=== PATIENT | male | born 1960 | race Caucasian/White ===

== ENCOUNTER 2018-01-31 14:40 | Emergency (ER) | payer SELFPAY ==
[~2018-01-31 14:40] MED LIST: CEPH500C3 PO; TYLE3 PO; Z.0.NO CURRENT MEDS
[2018-01-31] MEDS ORDERED: IOHEXOL 350 MG/ML 10 ML VIAL (for RAD DIAG) IVCONTRAST ONE (14:41)
[2018-01-31 15:16] VITALS: BP 150/73; PULSE 71; RESP 26; TEMP 97.7; O2SAT 97
--- NOTE | 2018-01-31 16:53 | RADRPT ---
EXAM DATE/TIME: 01/31/2018 15:31 [facility] COMPARISON: No previous studies available for comparison. INDICATIONS : Pain from trauma to right side. MEDICAL HISTORY : None. SURGICAL HISTORY : None. ENCOUNTER: Initial ACUITY: 4 - 6 days PAIN SCORE: 6/10 LOCATION: Right lower chest FINDINGS: The heart size is normal. There are small calcified granulomas are seen in the right upper lung. The lungs are otherwise clear. Minimal spurs are seen in the thoracic spine. No effusion is seen. CONCLUSION: No acute disease. Ger Ocampo MD on January 31, 2018 at 16:49 Board Certified Radiologist. This report was verified electronically.
[2018-01-31 17:24] VITALS: BP 165/85; PULSE 85; RESP 18; TEMP 98.2; O2SAT 98
--- NOTE | 2018-01-31 17:34 | PD ---
HPI Chief Complaint: Fall Time Seen by Provider: 17:19 Travel History International Travel<30 days: No Contact w/Intl Traveler<30days: No Traveled to known affect area: No History of Present Illness HPI This patient complains of chest pain. His pain started after a fall. He fell 4 days ago down 12 steps. He landed on his chest wall. Complains of pain in the right chest wall. Worse with movement of his torso or deep breath. No alleviating factors. Duration 4 days. Symptoms are severe. He says the pain continues to worsen. PFSH Past Medical History Asthma: No Autoimmune Disease: No Blood Disorders: No Heart Rhythm Problems: Yes Cancer: No Cardiac Catheterization: Yes Cardiovascular Problems: Yes (PERICARDITIS) High Cholesterol: No Chemotherapy: No Chest Pain: No Congestive Heart Failure: No COPD: No Diabetes: No Endocrine: No Glaucoma: No Genitourinary: No Hypertension: No Musculoskeletal: No Neurologic: No Psychiatric: No Respiratory: Yes (RIGHT LUNG CYSTS) Myocardial Infarction: Yes (1999) Radiation Therapy: No Sleep Apnea: No PNEUMOCCOCAL Vaccine (Year): 2 Past Surgical History Abdominal Surgery: Yes (APPENDECTOMY) AICD: No Appendectomy: Yes Cardiac Surgery: No Coronary Artery Bypass Graft: No Ear Surgery: No Endocrine Surgery: No Eye Surgery: No Genitourinary Surgery: No Gynecologic Surgery: No Oral Surgery: No Pacemaker: No Thoracic Surgery: No Other Surgery: Yes Social History Alcohol Use: Yes (RARELY) Tobacco Use: No Substance Use: Yes (COCAINE ) Allergies-Medications (Allergen,Severity, Reaction): Coded Allergies: No Known Allergies (Verified Adverse Reaction, Unknown, 01/31/18) Reported Meds & Prescriptions Reported Meds & Active Scripts Active Tramadol (Tramadol HCl) 50 Mg Tab 50 Mg PO Q6H PRN Tylenol #3 (Acetaminophen/Codeine Phosphate) 300 Mg/30 Mg Tab 1 Tab PO TIDPRN FOR PAIN Keflex (Cephalexin Monohydrate) 500 Mg Cap 500 Mg PO QID 3 Days Reported No Current Meds (Miscellaneous Medication) Misc Review of Systems General / Constitutional: No: Fever Eyes: No: Visual changes HENT: No: Headaches Cardiovascular: Positive: Chest Pain or Discomfort Respiratory: Positive: Shortness of Breath Gastrointestinal: No: Abdominal Pain Genitourinary: No: Dysuria Musculoskeletal: No: Pain Skin: No Rash Neurologic: No: Weakness Psychiatric: No: Depression Endocrine: No: Polydipsia Hematologic/Lymphatic: No: Easy Bruising Physical Exam Narrative GENERAL: Well-nourished, well-developed patient with chest wall pain. SKIN: Focused skin assessment reveals no rash and nodules. Skin is Warm and dry. HEAD: Atraumatic. Normocephalic. EYES: Pupils equal and round. No scleral icterus. No injection or drainage. ENT: No nasal bleeding or discharge. Mucous membranes pink and moist. NECK: Trachea midline. No JVD. CARDIOVASCULAR: Regular rate and rhythm. No murmur appreciated. RESPIRATORY: No accessory muscle use. Clear to auscultation. Breath sounds equal bilaterally. GASTROINTESTINAL: Abdomen soft, non-tender, nondistended. Hepatic and splenic margins not palpable. MUSCULOSKELETAL: No obvious deformities. No clubbing. No cyanosis. No edema. Very prominent chest wall tenderness in the right lower chest wall mid axillary to midclavicular lines. No crepitus or bruising. NEUROLOGICAL: Awake and alert. No obvious cranial nerve deficits. Motor grossly within normal limits. Normal speech. PSYCHIATRIC: Appropriate mood and affect; insight and judgment normal. Data Data Last Documented VS Vital Signs Date Time Temp Pulse Resp B/P (MAP) Pulse Ox O2 Delivery O2 Flow Rate FiO2 01/31/18 18:59 17 01/31/18 17:24 76 98 Room Air 01/31/18 17:24 98.2 165/85 (111) Orders Orders Chest, Pa & Lat (01/31/18 15:20) Iv Access Insert/Monitor (01/31/18 17:30) Complete Blood Count With Diff (01/31/18 17:30) Basic Metabolic Panel (Bmp) (01/31/18 17:30) Prothrombin Time / Inr (Pt) (01/31/18 17:30) Act Partial Throm Time (Ptt) (01/31/18 17:30) Ct Thorax/ Chest W Iv Contrast (01/31/18 ) Morphine Inj (Morphine Inj) (01/31/18 18:45) Ondansetron Inj (Zofran Inj) (01/31/18 18:45) Iohexol 350 Inj (Omnipaque 350 Inj) (01/31/18 14:41) Labs Laboratory Tests Test 01/31/18 17:25 White Blood Count 13.5 TH/MM3 Red Blood Count 5.69 MIL/MM3 Hemoglobin 17.5 GM/DL Hematocrit 49.2 % Mean Corpuscular Volume 86.5 FL Mean Corpuscular Hemoglobin 30.8 PG Mean Corpuscular Hemoglobin Concent 35.6 % Red Cell Distribution Width 14.0 % Platelet Count 228 TH/MM3 Mean Platelet Volume 8.9 FL Neutrophils (%) (Auto) 52.9 % Lymphocytes (%) (Auto) 26.2 % Monocytes (%) (Auto) 13.2 % Eosinophils (%) (Auto) 6.8 % Basophils (%) (Auto) 0.9 % Neutrophils # (Auto) 7.1 TH/MM3 Lymphocytes # (Auto) 3.5 TH/MM3 Monocytes # (Auto) 1.8 TH/MM3 Eosinophils # (Auto) 0.9 TH/MM3 Basophils # (Auto) 0.1 TH/MM3 CBC Comment DIFF FINAL Differential Comment Prothrombin Time 10.6 SEC Prothromb Time International Ratio 1.0 RATIO Activated Partial Thromboplast Time 26.4 SEC Blood Urea Nitrogen 11 MG/DL Creatinine 1.00 MG/DL Random Glucose 99 MG/DL Calcium Level 8.5 MG/DL Sodium Level 141 MEQ/L Potassium Level 3.9 MEQ/L Chloride Level 105 MEQ/L Carbon Dioxide Level 26.4 MEQ/L Anion Gap 10 MEQ/L Estimat Glomerular Filtration Rate 76 ML/MIN MDM Medical Decision Making Medical Screen Exam Complete: Yes Emergency Medical Condition: Yes Medical Record Reviewed: Yes Differential Diagnosis Rib fracture, hemothorax, pneumothorax, flail chest Narrative Course I have reviewed the patient's electronic medical record. Patient's been here multiple times for chest pain 2004 but not a frequent visitor IV placed and labs sent I reviewed his chest x-ray which does not show pneumothorax exam concerning for rib fractures and he is having severe worsening pain Therefore we discussed risks and benefits of CT scan including radiation and IV contrast CT is ordered after this discussion CT scan of the chest is negative for traumatic injury Lab studies are normal I wrote him 12 tramadol for pain relief I gave him a dose of morphine and Zofran while here for symptom relief I suspect he has some bruised ribs which should spontaneously improve over time Diagnosis Primary Impression: Rib pain on right side Additional Impression: Contusion of rib on right side Qualified Codes: S20.211A - Contusion of right front wall of thorax, initial encounter Additional Instructions: The patient was advised to follow up with their physician and return if they worsen. The patient was warned about potential sedation for the medications they will receive on prescription. Med/Other Pt SpecificInfo: Prescription(s) given Scripts Tramadol (Tramadol) 50 Mg Tab 50 MG PO Q6H Y for PAIN, #12 TAB 0 Refills Prov: Jace Peters MD 01/31/18 Disposition: 01 DISCHARGE HOME Condition: Stable Jace Peters MD Jan 31, 2018 17:34
[2018-01-31 18:08] LABS: AUTOMATED NEUTROPHIL # 7.1 TH/MM3 (1.8-7.7); BASOPHIL # 0.1 TH/MM3 (0-0.2); BASOPHIL % 0.9 % (0.0-2.0); EOSINOPHIL # 0.9 TH/MM3 (0-0.4); EOSINOPHIL % 6.8 % (0.0-4.0); HEMATOCRIT 49.2 % (39.0-51.0); HEMOGLOBIN 17.5 GM/DL (13.0-17.0); LYMPH % 26.2 % (9.0-44.0); LYMPHOCYTE # 3.5 TH/MM3 (1.0-4.8); MEAN CELL VOLUME 86.5 FL (80.0-100.0); MEAN CORPUSCULAR HEMOGLOBIN 30.8 PG (27.0-34.0); MEAN CORPUSCULAR HGB CONC 35.6 % (32.0-36.0); MEAN PLATELET VOLUME 8.9 FL (7.0-11.0); MONO % 13.2 % (0.0-8.0); MONOCYTE # 1.8 TH/MM3 (0-0.9); NEUT % 52.9 % (16.0-70.0); PLATELET COUNT 228 TH/MM3 (150-450); RED BLOOD COUNT 5.69 MIL/MM3 (4.50-5.90); WHITE BLOOD COUNT 13.5 TH/MM3 (4.0-11.0)
[2018-01-31 18:18] LABS: PROTHROMBIN TIME - PATIENT 10.6 SEC (9.8-11.6)
[2018-01-31 18:30] LABS: BICARBONATE 26.4 MEQ/L (21.0-32.0); CALCIUM 8.5 MG/DL (8.5-10.1)
[2018-01-31] MEDS ORDERED: MORPHINE SULFATE 4 MG/ML INJ IV PUSH ONE (18:45)
[2018-01-31] MEDS ORDERED: ONDANSETRON HCL 4 MG/2 ML VIAL IV ONE (18:45)
[2018-01-31 18:59] VITALS: RESP 17
--- NOTE | 2018-01-31 19:21 | RADRPT ---
EXAM DATE/TIME: 01/31/2018 19:08 [facility] COMPARISON: No previous studies available for comparison. INDICATIONS : Rib sided rib pain from fall downstairs 4 days ago. IV CONTRAST: 72 cc Omnipaque 350 (iohexol) IV RADIATION DOSE: 18.84 CTDIvol (mGy) MEDICAL HISTORY : Cardiovascular disease. SURGICAL HISTORY : Appendectomy. ENCOUNTER: Initial ACUITY: 4 - 6 days PAIN SCALE: 6/10 LOCATION: Right chest TECHNIQUE: Volumetric scanning of the chest was performed. Using automated exposure control and adjustment of t he mA and/or kV according to patient size, radiation dose was kept as low as reasonably achievable to obtain optimal diagnostic quality images. DICOM format image data is available electronically for review and comparison. Follow-up recommendations for detected pulmonary nodules are based at a minimum on nodule size and pa tient risk factors according to Fleischner Society Guidelines. FINDINGS: LUNGS: There is no consolidation or pneumothorax. No concerning pulmonary nodule is visualized. PLEURA: There is no pleural thickening or pleural effusion. MEDIASTINUM: The heart and great vessels demonstrate no acute abnormality. There is no mediastinal or hilar lymph adenopathy. AXILLAE: Within normal limits. No lymphadenopathy. SKELETAL: Within normal limits for patient age. MISCELLANEOUS: The visualized upper abdominal organs demonstrate no acute abnormality. CONCLUSION: Negative CT scan of the chest. There is no rib fracture or pneumothorax. Juventino Betancourt MD FACR on January 31, 2018 at 19:17 Board Certified Radiologist. This report was verified electronically.
[2018-01-31] MEDS ORDERED: TRAM50TA PO (20:44)
== END 2018-01-31 21:19 | disposition home or self-care (01) ==
LOC: NEPD 14:40
DX: S20.211A Contusion of right front wall of thorax, initial encounter (principal); R07.81 Pleurodynia; I25.2 Old myocardial infarction; I25.10 Atherosclerotic heart disease of native coronary artery without angina pectoris; W10.9XXA Fall (on) (from) unspecified stairs and steps, initial encounter
CPT/HCPCS: 71046; 71260; 80048; 85025; 85610; 85730; 96374; 96375; 99284; J2270; J2405; Q9967

== ENCOUNTER 2018-02-15 12:34 | Emergency (ER) | payer SELFPAY ==
[~2018-02-15] VITALS: Ht 175.3 cm; Wt 109.0 kg
[~2018-02-15 12:34] MED LIST changes: +TRAM50TA PO
[2018-02-15 12:57] VITALS: BP 160/76; PULSE 69; RESP 18; TEMP 97.6; O2SAT 98
--- NOTE | 2018-02-15 14:32 | PD ---
HPI Chief Complaint: Psychiatric Symptoms Time Seen by Provider: 14:31 Travel History International Travel<30 days: No Contact w/Intl Traveler<30days: No Traveled to known affect area: No History of Present Illness HPI 57-year-old male presents to the emergency department voluntarily for psychiatric evaluation. I initiated a Hickey act, signed by Dr. Peters, after evaluating the patient. Patient reports suicidal ideations, and having feelings of sadness and depression. Says he smoked crack a couple days ago and since then he has been having thoughts of wanting to kill himself and others. He said he went to the store and bought some scissors to stab himself in the heart. He brought the scissors here with him and gave him to the nurses in triage of the ER. He has history of suicidal attempt by cutting his wrists. He says he has been drug-free for 10 years and met a girl who convinced him to smoke crack the other day. Denies auditory or visual hallucinations. Reports smoking marijuana. Denies EtOH. He is also complaining of chest pain for the last 24 hours that is constant. Reports associated shortness of breath. Has history of chest pain in the past and has had a stress test but does not remember when. Pain radiates to his left arm and back. Says he has a right rib contusion from a week ago and it hurts to take deep breaths. Shortness of breath and chest pain are worse with activity. He has not taken any medications or tried measurements to alleviate his symptoms. Chest pain onset 24 hours ago. Suicidal thoughts onset a few days ago and was aggravated by smoking crack. No known relieving factors. Symptoms are moderate to severe in severity. His primary care provider is Dr. Nur. History of a questionable heart attack and pericarditis. No known allergies. Has no other medical complaints. No other modifying factors or associated signs and symptoms. PFSH Past Medical History Alzheimer's Disease: No Anemia: No Arthritis: No Asthma: No Atrial Fibrillation: No Autoimmune Disease: No Blood Disorders: No Bipolar Disorder: No Anxiety: No Depression: No Heart Rhythm Problems: No Cancer: No Cardiac Catheterization: No Cardiomyopathy: No Cardiovascular Problems: No Cerebral Palsy: No High Cholesterol: No Chemotherapy: No Chest Pain: No Congestive Heart Failure: No Cirrhosis: No COPD: No Cerebrovascular Accident: No Coronary Artery Disease: No Cystic Fibrosis: No Dementia: No Developmental Delay: No Diabetes: No Dialysis: No Diverticulitis: No Deep Vein Thrombosis: No Endocrine: No Fibromyalgia: No Gastrointestinal Disorders: No Genetic Disorder: No GERD: No Glaucoma: No Gout: No Genitourinary: No Headaches: No Hepatitis: No Hiatal Hernia: No Heparin Induced Thrombocytopen: No Herniated Disk: No Hypertension: No Immune Disorder: No Inguinal Hernia: No Implanted Vascular Access Dvce: No Insomnia: No Kidney Stones: No Musculoskeletal: No Neurologic: No Parkinson's Disease: No Psychiatric: No Reproductive: No Respiratory: No Resp. Syncytial Virus (RSV): No Integumentary: No Migraines: No Myocardial Infarction: No Pancreatitis: No Pneumonia: No Radiation Therapy: No Renal Failure: No Schizophrenia: No Seizures: No Shingles: No Sickle Cell Disease: No Sleep Apnea: No Thyroid Disease: No Triglycerides - High: No Ulcer: No PNEUMOCCOCAL Vaccine (Year): 2 Past Surgical History Abdominal Surgery: No AICD: No Appendectomy: Yes (1998) Arteriovenous Shunt: No Cardiac Surgery: No Cholecystectomy: No Coronary Artery Bypass Graft: No Coronary Stent: No Ear Surgery: No Endocrine Surgery: No Eye Surgery: No Genitourinary Surgery: No Gynecologic Surgery: No Insulin Pump: No Joint Replacement: No Mastectomy: No Neurologic Surgery: No Oral Surgery: No Pacemaker: No Prostatectomy: No Thoracic Surgery: No Tonsillectomy: No Tympanostomy Tube: No Valve Replacement: No Other Surgery: No Family History Family Hypercholesterolemia: No Social History Alcohol Use: No Tobacco Use: No Substance Use: No Allergies-Medications (Allergen,Severity, Reaction): Coded Allergies: No Known Allergies (Verified Adverse Reaction, Unknown, 01/31/18) Reported Meds & Prescriptions Reported Meds & Active Scripts Active Review of Systems Except as stated in HPI: all other systems reviewed are Neg Physical Exam Narrative GENERAL: Well-nourished, well-developed male patient, in no acute distress SKIN: Warm and dry. HEAD: Atraumatic. Normocephalic. EYES: Pupils equal and round. ENT: Mucosa pink and moist. NECK: Supple. Trachea midline. CARDIOVASCULAR: Regular rate and rhythm. No murmur appreciated. RESPIRATORY: No accessory muscle use. Clear to auscultation. Breath sounds equal bilaterally. GASTROINTESTINAL: Abdomen soft, non-tender, nondistended. Hepatic and splenic margins not palpable. Bowel sounds are active 4 quadrants. MUSCULOSKELETAL: No obvious deformities. No clubbing. No cyanosis. No edema. NEUROLOGICAL: Awake and alert. Oriented 3. No obvious cranial nerve deficits. Motor grossly within normal limits. Normal speech. Moves all extremities. 5/5 strength to all extremities. PSYCHIATRIC: No delusional thought processes. No hallucinations. Data Data Last Documented VS Vital Signs Date Time Temp Pulse Resp B/P (MAP) Pulse Ox O2 Delivery O2 Flow Rate FiO2 02/16/18 10:13 02/16/18 09:41 97.6 65 16 98 02/16/18 04:51 Room Air Orders Orders Complete Blood Count With Diff (02/15/18 14:32) Comprehensive Metabolic Panel (02/15/18 14:32) Thyroid Stimulating Hormone (02/15/18 14:32) Psych Screen (02/15/18 14:32) Drug Screen, Random Urine (02/15/18 14:32) Alcohol (Ethanol) (02/15/18 14:32) Salicylates (Aspirin) (02/15/18 14:32) Tylenol (Acetaminophen) (02/15/18 14:32) Electrocardiogram (02/15/18 15:13) Ckmb (Isoenzyme) Profile (02/15/18 15:13) Magnesium (Mg) (02/15/18 15:13) Prothrombin Time / Inr (Pt) (02/15/18 15:13) Act Partial Throm Time (Ptt) (02/15/18 15:13) Troponin I (02/15/18 15:13) Ecg Monitoring (02/15/18 15:13) Iv Access Insert/Monitor (02/15/18 15:13) Oximetry (02/15/18 15:13) Oxygen Administration (02/15/18 15:13) Aspirin Chew (Aspirin Chew) (02/15/18 15:15) Sodium Chloride 0.9% Flush (Ns Flush) (02/15/18 15:15) Chest, Pa & Lat (02/15/18 15:13) Diet Regular Basic (02/15/18 Dinner) CKMB (02/15/18 14:43) CKMB% (02/15/18 14:43) Diet Regular Basic (02/16/18 Breakfast) Ed Discharge Order (02/16/18 08:57) Labs Laboratory Tests Test 02/15/18 14:43 02/15/18 15:07 White Blood Count 11.7 TH/MM3 Red Blood Count 5.75 MIL/MM3 Hemoglobin 16.9 GM/DL Hematocrit 48.9 % Mean Corpuscular Volume 85.0 FL Mean Corpuscular Hemoglobin 29.5 PG Mean Corpuscular Hemoglobin Concent 34.7 % Red Cell Distribution Width 13.7 % Platelet Count 228 TH/MM3 Mean Platelet Volume 9.1 FL Neutrophils (%) (Auto) 51.2 % Lymphocytes (%) (Auto) 29.8 % Monocytes (%) (Auto) 14.9 % Eosinophils (%) (Auto) 3.2 % Basophils (%) (Auto) 0.9 % Neutrophils # (Auto) 6.0 TH/MM3 Lymphocytes # (Auto) 3.5 TH/MM3 Monocytes # (Auto) 1.7 TH/MM3 Eosinophils # (Auto) 0.4 TH/MM3 Basophils # (Auto) 0.1 TH/MM3 CBC Comment DIFF FINAL Differential Comment Blood Urea Nitrogen 10 MG/DL Creatinine 0.97 MG/DL Random Glucose 72 MG/DL Total Protein 7.5 GM/DL Albumin 3.3 GM/DL Calcium Level 8.1 MG/DL Alkaline Phosphatase 113 U/L Aspartate Amino Transf (AST/SGOT) 38 U/L Alanine Aminotransferase (ALT/SGPT) 38 U/L Total Bilirubin 0.6 MG/DL Sodium Level 142 MEQ/L Potassium Level 4.4 MEQ/L Chloride Level 109 MEQ/L Carbon Dioxide Level 26.3 MEQ/L Anion Gap 7 MEQ/L Estimat Glomerular Filtration Rate 79 ML/MIN Magnesium Level 2.4 MG/DL Total Creatine Kinase 135 U/L Creatine Kinase MB 2.5 NG/ML Troponin I LESS THAN 0.02 NG/ML Thyroid Stimulating Hormone 3rd Gen 0.416 uIU/ML Salicylates Level LESS THAN 1.7 MG/DL Urine Opiates Screen NEG Acetaminophen Level LESS THAN 2.0 MCG/ML Urine Barbiturates Screen NEG Urine Amphetamines Screen POS Urine Benzodiazepines Screen NEG Urine Cocaine Screen POS Urine Cannabinoids Screen POS Ethyl Alcohol Level LESS THAN 3 MG/DL Prothrombin Time 10.7 SEC Prothromb Time International Ratio 1.1 RATIO Activated Partial Thromboplast Time 26.1 SEC MDM Medical Decision Making Medical Screen Exam Complete: Yes Emergency Medical Condition: Yes Medical Record Reviewed: Yes Differential Diagnosis Medical clearance for psychiatric admission, cocaine abuse, chest pain, polysubstance abuse, [place], ACS Narrative Course 57-year-old male presents voluntarily for psychiatric evaluation. I initiated a Hickey act secondary to the patient being a threat to himself. He has suicidal ideation and body para scissors to stab himself in the heart. He presented with the scissors and they were confiscated by triage. Patient is complaining of chest pain and shortness of breath. He does admit to smoking crack 2 days ago. CBC, CMP, troponin, CK-MB, magnesium, chest x-ray, EKG, aspirin ordered. 1620: EKG with normal sinus rhythm. 1641: CBC, CMP unremarkable. Coags unremarkable. Positive for amphetamines, cocaine, cannabinoids. 1900: Troponin less than 0.02. Patient cleared for psychiatric evaluation. May Perry [facility] Feb 15, 2018 14:32
[2018-02-15 14:58] LABS: BASOPHIL # 0.1 TH/MM3 (0-0.2); BASOPHIL % 0.9 % (0.0-2.0); EOSINOPHIL # 0.4 TH/MM3 (0-0.4); EOSINOPHIL % 3.2 % (0.0-4.0); HEMATOCRIT 48.9 % (39.0-51.0); HEMOGLOBIN 16.9 GM/DL (13.0-17.0); LYMPH % 29.8 % (9.0-44.0); LYMPHOCYTE # 3.5 TH/MM3 (1.0-4.8); MEAN CORPUSCULAR HEMOGLOBIN 29.5 PG (27.0-34.0); MEAN CORPUSCULAR HGB CONC 34.7 % (32.0-36.0); MEAN PLATELET VOLUME 9.1 FL (7.0-11.0); MONO % 14.9 % (0.0-8.0); MONOCYTE # 1.7 TH/MM3 (0-0.9); NEUT % 51.2 % (16.0-70.0); PLATELET COUNT 228 TH/MM3 (150-450); RED BLOOD COUNT 5.75 MIL/MM3 (4.50-5.90); RED CELL DISTRIBUTION WIDTH 13.7 % (11.6-17.2); WHITE BLOOD COUNT 11.7 TH/MM3 (4.0-11.0)
--- NOTE | 2018-02-15 15:05 | PD ---
Data Data Last Documented VS Vital Signs Date Time Temp Pulse Resp B/P (MAP) Pulse Ox O2 Delivery O2 Flow Rate FiO2 02/15/18 14:40 18 02/15/18 12:57 97.6 69 160/76 (104) 98 Orders Orders Complete Blood Count With Diff (02/15/18 14:32) Comprehensive Metabolic Panel (02/15/18 14:32) Thyroid Stimulating Hormone (02/15/18 14:32) Psych Screen (02/15/18 14:32) Drug Screen, Random Urine (02/15/18 14:32) Alcohol (Ethanol) (02/15/18 14:32) Salicylates (Aspirin) (02/15/18 14:32) Tylenol (Acetaminophen) (02/15/18 14:32) Labs Laboratory Tests Test 02/15/18 14:43 White Blood Count 11.7 TH/MM3 Red Blood Count 5.75 MIL/MM3 Hemoglobin 16.9 GM/DL Hematocrit 48.9 % Mean Corpuscular Volume 85.0 FL Mean Corpuscular Hemoglobin 29.5 PG Mean Corpuscular Hemoglobin Concent 34.7 % Red Cell Distribution Width 13.7 % Platelet Count 228 TH/MM3 Mean Platelet Volume 9.1 FL Neutrophils (%) (Auto) 51.2 % Lymphocytes (%) (Auto) 29.8 % Monocytes (%) (Auto) 14.9 % Eosinophils (%) (Auto) 3.2 % Basophils (%) (Auto) 0.9 % Neutrophils # (Auto) 6.0 TH/MM3 Lymphocytes # (Auto) 3.5 TH/MM3 Monocytes # (Auto) 1.7 TH/MM3 Eosinophils # (Auto) 0.4 TH/MM3 Basophils # (Auto) 0.1 TH/MM3 CBC Comment DIFF FINAL Differential Comment [facility] Supervised Visit with VALENTE: Yes Narrative Course I, Dr. Peters, have reviewed the advance practice practitioner's documentation and am in agreement, met with the patient face to face, made the diagnosis, and the medical decision making was done by me. *My assessment and Findings: Patient is voluntary and arrives with some suicidal ideation. He was found to have scissors in the room which has been confiscated. Psychiatric evaluation is pending. We have initiated medical clearance workup. He has normal temperature and just slight elevation of blood pressure was systolic of 160. CBC essentially normal other than minimal nonspecific leukocytosis. Electrolytes are pending but will be reviewed. Jace Peters MD Feb 15, 2018 15:05
[2018-02-15] MEDS ORDERED: ASPIRIN 81 MG CHEW TAB PO ONE (15:15)
[2018-02-15] MEDS ORDERED: SODIUM CHLORIDE 0.9% FLUSH 10 ML FLUSH IVF PRN (15:15)
[2018-02-15 15:24] LABS: ALBUMIN 3.3 GM/DL (3.4-5.0); AST (GOT) 38 U/L (15-37); BICARBONATE 26.3 MEQ/L (21.0-32.0); BLOOD UREA NITROGEN 10 MG/DL (7-18); CALCIUM 8.1 MG/DL (8.5-10.1); CHLORIDE 109 MEQ/L (98-107); CREATININE 0.97 MG/DL (0.60-1.30); GLOMERULAR FILTRATION RATE 79 ML/MIN (>89); GLUCOSE,RANDOM 72 MG/DL (74-106); SODIUM (NA) 142 MEQ/L (136-145)
[2018-02-15 15:33] LABS: ALKALINE PHOSPHATASE 113 U/L (45-117); ALT (GPT) 38 U/L (12-78); TOTAL BILIRUBIN ADULT 0.6 MG/DL (0.2-1.0); TOTAL PROTEIN 7.5 GM/DL (6.4-8.2)
[2018-02-15 15:36] LABS: ACETAMINOPHEN LESS THAN 2.0 MCG/ML (10.0-30.0)
--- NOTE | 2018-02-15 15:52 | RADRPT ---
EXAM DATE/TIME: 02/15/2018 15:33 [facility] COMPARISON: CHEST PA & LAT, January 31, 2018, 15:31. INDICATIONS : Chest pain MEDICAL HISTORY : Cardiovascular disease. SURGICAL HISTORY : Appendectomy. ENCOUNTER: Initial ACUITY: 2 weeks PAIN SCORE: 4/10 LOCATION: chest FINDINGS: PA and lateral views of the chest demonstrate the lungs to be symmetrically aerated without evidence of mass, infiltrate or effusion. Peribronchial thickening present. The cardiomediastinal contours are unremarkable. Osseous structures are intact. CONCLUSION: 1. No consolidation or effusion. Peribronchial thickening present. Henri Wick MD on February 15, 2018 at 15:48 Board Certified Radiologist. This report was verified electronically.
[2018-02-15 15:59] LABS: INTERNATIONAL NORMALIZED RATIO 1.1 RATIO; PROTHROMBIN TIME - PATIENT 10.7 SEC (9.8-11.6)
[2018-02-15 18:30] LABS: MAGNESIUM 2.4 MG/DL (1.5-2.5); TROPONIN I LESS THAN 0.02 NG/ML (0.02-0.05)
[2018-02-16 01:13] VITALS: BP 163/89; PULSE 53; RESP 18; TEMP 97.7; O2SAT 98
[2018-02-16 04:51] VITALS: BP 127/77; PULSE 70; RESP 18; TEMP 98.2; O2SAT 96
--- NOTE | 2018-02-16 09:01 | PD ---
Physical Exam Date Seen by Provider: Feb 16, 2018 Time Seen by Provider: 08:58 Narrative For full history and physical examination please see previous providers note. Data Data Last Documented VS Vital Signs Date Time Temp Pulse Resp B/P (MAP) Pulse Ox O2 Delivery O2 Flow Rate FiO2 02/16/18 04:51 98.2 70 18 127/77 (94) 96 Room Air Orders Orders Complete Blood Count With Diff (02/15/18 14:32) Comprehensive Metabolic Panel (02/15/18 14:32) Thyroid Stimulating Hormone (02/15/18 14:32) Psych Screen (02/15/18 14:32) Drug Screen, Random Urine (02/15/18 14:32) Alcohol (Ethanol) (02/15/18 14:32) Salicylates (Aspirin) (02/15/18 14:32) Tylenol (Acetaminophen) (02/15/18 14:32) Electrocardiogram (02/15/18 15:13) Ckmb (Isoenzyme) Profile (02/15/18 15:13) Magnesium (Mg) (02/15/18 15:13) Prothrombin Time / Inr (Pt) (02/15/18 15:13) Act Partial Throm Time (Ptt) (02/15/18 15:13) Troponin I (02/15/18 15:13) Ecg Monitoring (02/15/18 15:13) Iv Access Insert/Monitor (02/15/18 15:13) Oximetry (02/15/18 15:13) Oxygen Administration (02/15/18 15:13) Aspirin Chew (Aspirin Chew) (02/15/18 15:15) Sodium Chloride 0.9% Flush (Ns Flush) (02/15/18 15:15) Chest, Pa & Lat (02/15/18 15:13) Diet Regular Basic (02/15/18 Dinner) CKMB (02/15/18 14:43) CKMB% (02/15/18 14:43) Diet Regular Basic (02/16/18 Breakfast) Ed Discharge Order (02/16/18 08:57) Labs Laboratory Tests Test 02/15/18 14:43 02/15/18 15:07 White Blood Count 11.7 TH/MM3 Red Blood Count 5.75 MIL/MM3 Hemoglobin 16.9 GM/DL Hematocrit 48.9 % Mean Corpuscular Volume 85.0 FL Mean Corpuscular Hemoglobin 29.5 PG Mean Corpuscular Hemoglobin Concent 34.7 % Red Cell Distribution Width 13.7 % Platelet Count 228 TH/MM3 Mean Platelet Volume 9.1 FL Neutrophils (%) (Auto) 51.2 % Lymphocytes (%) (Auto) 29.8 % Monocytes (%) (Auto) 14.9 % Eosinophils (%) (Auto) 3.2 % Basophils (%) (Auto) 0.9 % Neutrophils # (Auto) 6.0 TH/MM3 Lymphocytes # (Auto) 3.5 TH/MM3 Monocytes # (Auto) 1.7 TH/MM3 Eosinophils # (Auto) 0.4 TH/MM3 Basophils # (Auto) 0.1 TH/MM3 CBC Comment DIFF FINAL Differential Comment Blood Urea Nitrogen 10 MG/DL Creatinine 0.97 MG/DL Random Glucose 72 MG/DL Total Protein 7.5 GM/DL Albumin 3.3 GM/DL Calcium Level 8.1 MG/DL Alkaline Phosphatase 113 U/L Aspartate Amino Transf (AST/SGOT) 38 U/L Alanine Aminotransferase (ALT/SGPT) 38 U/L Total Bilirubin 0.6 MG/DL Sodium Level 142 MEQ/L Potassium Level 4.4 MEQ/L Chloride Level 109 MEQ/L Carbon Dioxide Level 26.3 MEQ/L Anion Gap 7 MEQ/L Estimat Glomerular Filtration Rate 79 ML/MIN Magnesium Level 2.4 MG/DL Total Creatine Kinase 135 U/L Creatine Kinase MB 2.5 NG/ML Troponin I LESS THAN 0.02 NG/ML Thyroid Stimulating Hormone 3rd Gen 0.416 uIU/ML Salicylates Level LESS THAN 1.7 MG/DL Urine Opiates Screen NEG Acetaminophen Level LESS THAN 2.0 MCG/ML Urine Barbiturates Screen NEG Urine Amphetamines Screen POS Urine Benzodiazepines Screen NEG Urine Cocaine Screen POS Urine Cannabinoids Screen POS Ethyl Alcohol Level LESS THAN 3 MG/DL Prothrombin Time 10.7 SEC Prothromb Time International Ratio 1.1 RATIO Activated Partial Thromboplast Time 26.1 SEC [facility] Medical Record Reviewed: Yes Supervised Visit with VALENTE: No Narrative Course For full H&P please see previous providers note. Patient presented to the emergency department for psychiatric evaluation, he was medically cleared. He was then seen and evaluated by the psychiatrist, Edelmira act was initiated on arrival due to patient's suicidal ideations. Psychiatrist listed the Hickey act and diagnosed patient with substance-induced mood disorder. Patient is encouraged to follow-up with Ramon Walsh. Patient stable for discharge. Diagnosis Primary Impression: Substance induced mood disorder Referrals: [facility] Patient Instructions: General Instructions Additional Instruction: Follow-up with Ramon Walsh Return to emergency department for any new or worsening symptoms Avoid the use of illicit substances and alcohol Med/Other Pt SpecificInfo: No Change to Meds Disposition: 01 DISCHARGE HOME Condition: Stable Debbi Chew Feb 16, 2018 09:01
[2018-02-16 09:41] VITALS: BP 137/84; PULSE 65; RESP 16; TEMP 97.6; O2SAT 98
--- NOTE | 2018-02-16 11:06 | PD.PSY.CON ---
Provisional Diagnosis Admission Date Kalaheo I. Substance-induced mood disorder, polysubstance dependence including cocaine, amphetamine, cannabis, r/o conscious simulation with secondary gain of use in the hospital as a long-term Kalaheo II. r/o antisocial personality disorder Kalaheo III. No significant medical history Kalaheo IV. Recent loss of his house, recent breakup with girlfriend, substance abuse Kalaheo V. 53 History of Present Illness Service Psychiatry Consult Requested By ER Reason for Consult Under Edelmira act Primary Care Physician No Primary Care Physician HPI The patient was seen this morning at 7:15 AM The patient is a 57-year-old man, employed as a seller, recently became homeless , , with psychiatric history of polysubstance abuse including cocaine, amphetamines, cannabis, no previous psychiatric hospitalizations, history of self cutting behavior, multiple incarcerations in the past, no significant medical history, presents to the emergency department voluntarily for psychiatric evaluation. He was Hickey acted by ER physician, signed by Dr. Peters, after evaluating the patient. Initially in the ER patient reporte suicidal ideations, and having feelings of sadness and depression. Says he smoked crack a couple days ago and since then he has been having thoughts of wanting to kill himself and others. He said he went to the store and bought some scissors to stab himself in the heart. He brought the scissors here with him and gave him to the nurses in triage of the ER. He has history of suicidal attempt by cutting his wrists. He says he has been drug-free for 10 years and met a girl who convinced him to smoke crack the other day. Denies auditory or visual hallucinations. Reports smoking marijuana. Denies EtOH. He is also complaining of chest pain for the last 24 hours that is constant. On psychiatric evaluation today the patient is calm, cooperative. Patient explains that he has been in a binge of drugs in the last week. He says that he met at 33 years old woman who made him use a lot of drugs and spend all his money. Patient reports that at this point he is homeless, he has no money, he is afraid that he might lost his job. Patient states that now he feels like he is a drug addict. Patient states that a good way to start his life now is going to detox and rehab. At this moment he denies suicidal or homicidal ideation, he denies visual and auditory hallucinations Review of Systems Constitutional: DENIES: Diaphoretic episodes, Fatigue, Fever, Weight gain, Weight loss, Chills, Dizziness, Change in appetite, Night Sweats Endocrine: DENIES: Heat/cold intolerance, Polydipsia, Polyuria, Polyphagia Eyes: DENIES: Blurred vision, Diplopia, Eye inflammation, Eye pain, Vision loss , Photosensitivity, Double Vision Ears, nose, mouth, throat: DENIES: Tinnitus, Hearing loss, Vertigo, Nasal discharge, Oral lesions, Throat pain, Hoarseness, Ear Pain, Running Nose, Epistaxis, Sinus Pain, Toothache, Odynophagia Respiratory: DENIES: Apneas, Cough, Snoring, Wheezing, Hemoptysis, Sputum production, Shortness of breath Gastrointestinal: DENIES: Abdominal pain, Black stools, Bloody stools, Constipation, Diarrhea, Nausea, Vomiting, Difficulty Swallowing, Anorexia Genitourinary: DENIES: Sexual dysfunction, Urinary frequency, Urinary incontinence, Urgency, Hematuria, Dysuria, Nocturia, Penile Discharge, Testicular Pain, Testicular Swelling Musculoskeletal: DENIES: Joint pain, Muscle aches, Stiffness, Joint Swelling, Back pain, Neck pain Integumentary: DENIES: Abnormal pigmentation, Nail changes, Pruritus, Rash Hematologic/lymphatic: DENIES: Bruising, Lymphadenopathy Immunologic/allergic: DENIES: Eczema, Urticaria Neurologic: DENIES: Abnormal gait, Headache, Localized weakness, Paresthesias, Seizures, Speech Problems, Tremor, Poor Balance Psychiatric: DENIES: Anxiety, Confusion, Mood changes, Depression, Hallucinations, Agitation, Suicidal Ideation, Homicidal Ideation, Delusions Past Family Social History Coded Allergies: No Known Allergies (Verified Adverse Reaction, Unknown, 01/31/18) Discontinued Reported Medications Miscellaneous (No Current Meds) [facility] 07/21/11 Discontinued Scripts Tramadol (Tramadol) 50 Mg Tab, 50 MG PO Q6H Y for PAIN, #12 TAB 0 Refills Prov:Jace Peters MD 01/31/18 Acetaminophen/Codeine (Tylenol #3) 300 Mg/30 Mg Tab, 1 TAB PO TIDPRN, #10 FOR PAIN Prov:Steve Conroy MD 07/21/11 Cephalexin (Keflex) 500 Mg Cap, 500 MG PO QID for 3 Days Prov:Steve Conroy MD 07/21/11 Family Psych History He has a brother who committed suicide Social History Patient was born and raised in [place], he lives in [facility], he is homeless now , employed, highest level of education is high school Patient's Strengths (min. 2) Verbal communicate Physical Exam Vital Signs Vital Signs Date Time Temp Pulse Resp B/P (MAP) Pulse Ox O2 Delivery O2 Flow Rate FiO2 02/16/18 10:13 02/16/18 09:41 97.6 65 16 98 02/16/18 04:51 Room Air Lab Results Test 02/15/18 14:43 02/15/18 15:07 White Blood Count 11.7 TH/MM3 Red Blood Count 5.75 MIL/MM3 Hemoglobin 16.9 GM/DL Hematocrit 48.9 % Mean Corpuscular Volume 85.0 FL Mean Corpuscular Hemoglobin 29.5 PG Mean Corpuscular Hemoglobin Concent 34.7 % Red Cell Distribution Width 13.7 % Platelet Count 228 TH/MM3 Mean Platelet Volume 9.1 FL Neutrophils (%) (Auto) 51.2 % Lymphocytes (%) (Auto) 29.8 % Monocytes (%) (Auto) 14.9 % Eosinophils (%) (Auto) 3.2 % Basophils (%) (Auto) 0.9 % Neutrophils # (Auto) 6.0 TH/MM3 Lymphocytes # (Auto) 3.5 TH/MM3 Monocytes # (Auto) 1.7 TH/MM3 Eosinophils # (Auto) 0.4 TH/MM3 Basophils # (Auto) 0.1 TH/MM3 CBC Comment DIFF FINAL Differential Comment Blood Urea Nitrogen 10 MG/DL Creatinine 0.97 MG/DL Random Glucose 72 MG/DL Total Protein 7.5 GM/DL Albumin 3.3 GM/DL Calcium Level 8.1 MG/DL Alkaline Phosphatase 113 U/L Aspartate Amino Transf (AST/SGOT) 38 U/L Alanine Aminotransferase (ALT/SGPT) 38 U/L Total Bilirubin 0.6 MG/DL Sodium Level 142 MEQ/L Potassium Level 4.4 MEQ/L Chloride Level 109 MEQ/L Carbon Dioxide Level 26.3 MEQ/L Anion Gap 7 MEQ/L Estimat Glomerular Filtration Rate 79 ML/MIN Magnesium Level 2.4 MG/DL Total Creatine Kinase 135 U/L Creatine Kinase MB 2.5 NG/ML Troponin I LESS THAN 0.02 NG/ML Thyroid Stimulating Hormone 3rd Gen 0.416 uIU/ML Salicylates Level LESS THAN 1.7 MG/DL Urine Opiates Screen NEG Acetaminophen Level LESS THAN 2.0 MCG/ML Urine Barbiturates Screen NEG Urine Amphetamines Screen POS Urine Benzodiazepines Screen NEG Urine Cocaine Screen POS Urine Cannabinoids Screen POS Ethyl Alcohol Level LESS THAN 3 MG/DL Prothrombin Time 10.7 SEC Prothromb Time International Ratio 1.1 RATIO Activated Partial Thromboplast Time 26.1 SEC Mental Status Examination Appearance: Appropriate Consciousness: Alert Orientation: x4 Motor Activity: Normal gait Speech: Unremarkable Language: Adequate Fund of Knowledge: Adequate Attention and Concentration: Adequate Memory: Unremarkable Mood: Appropriate Affect: Appropriate Thought Process & Associations: Intact Thought Content: Appropriate Hallucination Type: None Delusion Type: None Suicidal Ideation: No Suicidal Plan: No Suicidal Intention: No Homicidal Ideation: No Homicidal Plan: No Homicidal Intention: No Insight: Adequate Judgment: Adequate Assessment & Plan Problem List: (1) Substance induced mood disorder ICD Codes: F19.94 - Other psychoactive substance use, unspecified with psychoactive substance-induced mood disorder Assessment & Plan: On psychiatric evaluation today the patient is calm, cooperative, logical, coherent and relevant. Patient reports symptomatology of depression mostly consisting and sadness, guiltiness, hopelessness, in the context of losing his housing, losing a lot of money in the last week because he has been in a binge of drugs. The patient has history of drug abuse, poor impulse control, self cutting behavior, multiple incarcerations in the past. At this moment he denies suicidal and homicidal ideation, he denies visual and auditory hallucinations. The patient seems to be regretful, committed to start detox/rehab. His recent suicidal ideation was most probably the result of multiple drug intoxication, also exacerbated by the stress of becoming homeless , but conscious simulation with secondary gain of use in the hospital as a long-term might also have a role in his suicidality. Various clinically significant cluster B traits are visible, antisocial personality disorder is possible. He does not meet criteria for involuntary psychiatric admission at this moment. We will try to connect him with [facility] this morning. Support, motivation and psychoeducation provided I will lift the Hickey act. Assessment & Plan Estimated LOS: Sj Booker MD Feb 16, 2018 11:06
--- NOTE | 2018-02-16 15:11 | EKG ---
Date Performed: 02/15/2018 Time Performed: 16:07:47 PTAGE: 57 years EKG: Sinus rhythm Since the previous tracing, no significant change noted NORMAL ECG PREVIOUS TRACING : 10/01/2006 12.33 DOCTOR: Henry Giron Interpretating Date/Time 02/16/2018 15:09:18
== END 2018-02-16 10:14 | disposition home or self-care (01) ==
LOC: NEPD 12:34 → NEPJ 02-16 10:14
DX: F19.94 Other psychoactive substance use, unspecified with psychoactive substance-induced mood disorder (principal); R07.9 Chest pain, unspecified; R06.02 Shortness of breath
CPT/HCPCS: 71046; 80053; 80307; 82550; 82552; 83735; 84443; 84484; 85025; 85610; 85730; 93005; 99285

== ENCOUNTER 2018-03-26 14:54 | Observation (INO) | payer OTHER ==
[2018-03-26] VITALS (8 sets, daily range): BP systolic 118–150; BP diastolic 65–83; PULSE 61–72; RESP 16–18; TEMP 98.1–98.4; O2SAT 95–98
[~2018-03-26] VITALS: Ht 175.3 cm; Wt 105.0 kg
--- NOTE | 2018-03-26 15:02 | PD ---
HPI Chief Complaint: Chest Pain Time Seen by Provider: 15:01 Travel History International Travel<30 days: No Contact w/Intl Traveler<30days: No Traveled to known affect area: No History of Present Illness HPI 57-year-old male with history of CAD, remote heart attack in 1998, presents emergency department today for evaluation of chest pain approximately 3 hours duration. Patient states that he began with his left arm tingling in the moved into his chest. He states it is a constant dull ache but intermittently sharp with tingling in his left shoulder and arm. Patient denies any current cough or chest congestion. States that he did recently have a cold. Denies any recent fever chills. No hemoptysis. Patient states the pain is an 8 out of 10 at this time. He received 4 mg of morphine and nitroglycerin spray in route by EVAC and states this did help alleviate it temporarily. Patient states it is associated with nausea, lightheaded sensation, and shortness of breath. He has not had any diaphoresis. He has no other symptoms to report at this time. PFSH Past Medical History Alzheimer's Disease: No Anemia: No Arthritis: No Asthma: No Atrial Fibrillation: No Autoimmune Disease: No Blood Disorders: No Bipolar Disorder: No Anxiety: No Depression: No Heart Rhythm Problems: No Cancer: No Cardiac Catheterization: No Cardiomyopathy: No Cardiovascular Problems: No Cerebral Palsy: No High Cholesterol: No Chemotherapy: No Chest Pain: No Congestive Heart Failure: No Cirrhosis: No COPD: No Cerebrovascular Accident: No Coronary Artery Disease: No Cystic Fibrosis: No Dementia: No Developmental Delay: No Diabetes: No Dialysis: No Diverticulitis: No Deep Vein Thrombosis: No Endocrine: No Fibromyalgia: No Gastrointestinal Disorders: No Genetic Disorder: No GERD: No Glaucoma: No Gout: No Genitourinary: No Headaches: No Hepatitis: No Hiatal Hernia: No Heparin Induced Thrombocytopen: No Herniated Disk: No Hypertension: No Immune Disorder: No Inguinal Hernia: No Implanted Vascular Access Dvce: No Insomnia: No Kidney Stones: No Musculoskeletal: No Neurologic: No Parkinson's Disease: No Psychiatric: No Reproductive: No Respiratory: No Resp. Syncytial Virus (RSV): No Integumentary: No Migraines: No Myocardial Infarction: No Pancreatitis: No Pneumonia: No Radiation Therapy: No Renal Failure: No Schizophrenia: No Seizures: No Shingles: No Sickle Cell Disease: No Sleep Apnea: No Thyroid Disease: No Triglycerides - High: No Ulcer: No PNEUMOCCOCAL Vaccine (Year): 2 Past Surgical History Abdominal Surgery: No AICD: No Appendectomy: Yes (1998) Arteriovenous Shunt: No Cardiac Surgery: No Cholecystectomy: No Coronary Artery Bypass Graft: No Coronary Stent: No Ear Surgery: No Endocrine Surgery: No Eye Surgery: No Genitourinary Surgery: No Gynecologic Surgery: No Insulin Pump: No Joint Replacement: No Mastectomy: No Neurologic Surgery: No Oral Surgery: No Pacemaker: No Prostatectomy: No Thoracic Surgery: No Tonsillectomy: No Tympanostomy Tube: No Valve Replacement: No Other Surgery: No Family History Family Hypercholesterolemia: No Social History Alcohol Use: No Tobacco Use: No Substance Use: Yes Allergies-Medications (Allergen,Severity, Reaction): Coded Allergies: No Known Allergies (Verified Allergy, Unknown, 03/26/18) Reported Meds & Prescriptions Reported Meds & Active Scripts Active No Active Prescriptions or Reported Medications Review of Systems Except as stated in HPI: all other systems reviewed are Neg Physical Exam Narrative GENERAL: Well-nourished male patient, no acute distress. SKIN: Focused skin assessment warm/dry. HEAD: Atraumatic. Normocephalic. EYES: Pupils equal and round. No scleral icterus. No injection or drainage. ENT: No nasal bleeding or discharge. Mucous membranes pink and moist. NECK: Trachea midline. No JVD. CARDIOVASCULAR: Regular rate and rhythm. No murmur appreciated. RESPIRATORY: No accessory muscle use. Clear to auscultation. Breath sounds equal bilaterally. No tenderness elicited palpation of thoracic cage. Even respirations. GASTROINTESTINAL: Abdomen soft, non-tender, nondistended. Hepatic and splenic margins not palpable. MUSCULOSKELETAL: No obvious deformities. No clubbing. No cyanosis. No edema. NEUROLOGICAL: Awake and alert. No obvious cranial nerve deficits. Motor grossly within normal limits. Normal speech. PSYCHIATRIC: Appropriate mood and affect; insight and judgment normal. Data Data Last Documented VS Vital Signs Date Time Temp Pulse Resp B/P (MAP) Pulse Ox O2 Delivery O2 Flow Rate FiO2 03/26/18 16:35 69 18 134/65 (88) 95 Nasal Cannula 2.00 03/26/18 15:12 98.1 Orders Orders Electrocardiogram (03/26/18 15:02) Basic Metabolic Panel (Bmp) (03/26/18 15:02) Ckmb (Isoenzyme) Profile (03/26/18 15:02) Complete Blood Count With Diff (03/26/18 15:02) Magnesium (Mg) (03/26/18 15:02) Prothrombin Time / Inr (Pt) (03/26/18 15:02) Act Partial Throm Time (Ptt) (03/26/18 15:02) Troponin I (03/26/18 15:02) Lipase (03/26/18 15:02) Ecg Monitoring (03/26/18 15:02) Bilateral Bp Monitoring (03/26/18 15:02) Iv Access Insert/Monitor (03/26/18 15:02) Oximetry (03/26/18 15:02) Oxygen Administration (03/26/18 15:02) Sodium Chloride 0.9% Flush (Ns Flush) (03/26/18 15:15) Chest, Pa & Lat (03/26/18 15:02) Electrocardiogram (03/26/18 ) Morphine Inj (Morphine Inj) (03/26/18 16:15) Nitroglycerin Sl (Nitrostat Sl) (03/26/18 16:15) Sodium Chlorid 0.9% 500 Ml Inj (Ns 500 M (03/26/18 16:15) Ketorolac Inj (Toradol Inj) (03/26/18 17:15) Morphine Inj (Morphine Inj) (03/26/18 17:15) Admit Order (Ed Use Only) (03/26/18 17:05) Activity Bed Rest With Brp (03/26/18 17:05) Vital Signs (Adult) Q4H (03/26/18 17:05) Cardiac Rhythm .As Directed (03/26/18 17:05) Notify Dr: Other .PRN (03/26/18 17:05) Notify Dr. Parameters (03/26/18 17:05) Resp Oxygen Nasal Cannula (03/26/18 ) Diet Npo (03/27/18 Breakfast) Diet Heart Healthy (03/26/18 Dinner) Ckmb (Isoenzyme) Profile (03/26/18 18:00) Ckmb (Isoenzyme) Profile (03/26/18 21:00) Troponin I (03/26/18 18:00) Troponin I (03/26/18 21:00) Electrocardiogram (03/26/18 18:00) Electrocardiogram (03/26/18 21:00) ^ Obtain (03/26/18 17:05) Sodium Chloride 0.9% Flush (Ns Flush) (03/26/18 17:15) Sodium Chloride 0.9% Flush (Ns Flush) (03/26/18 21:00) Acetaminophen (Tylenol) (03/26/18 17:15) Acetamin-Hydrocod 325-7.5 Mg ([place] 7.5 (03/26/18 17:15) Morphine Inj (Morphine Inj) (03/26/18 17:15) Nitroglycerin Sl (Nitrostat Sl) (03/26/18 17:15) Director Independent / Telemetry LEYLA.Q8H (03/26/18 17:05) Kelvin Bilateral/Knee High LEYAL.QSHIFT (03/26/18 17:05) Ondansetron Odt (Zofran Odt) (03/26/18 17:15) Labs Laboratory Tests Test 03/26/18 15:15 White Blood Count 10.8 TH/MM3 Red Blood Count 6.19 MIL/MM3 Hemoglobin 17.7 GM/DL Hematocrit 52.9 % Mean Corpuscular Volume 85.5 FL Mean Corpuscular Hemoglobin 28.5 PG Mean Corpuscular Hemoglobin Concent 33.3 % Red Cell Distribution Width 13.8 % Platelet Count 220 TH/MM3 Mean Platelet Volume 10.0 FL Neutrophils (%) (Auto) 58.3 % Lymphocytes (%) (Auto) 24.0 % Monocytes (%) (Auto) 12.5 % Eosinophils (%) (Auto) 4.4 % Basophils (%) (Auto) 0.8 % Neutrophils # (Auto) 6.3 TH/MM3 Lymphocytes # (Auto) 2.6 TH/MM3 Monocytes # (Auto) 1.4 TH/MM3 Eosinophils # (Auto) 0.5 TH/MM3 Basophils # (Auto) 0.1 TH/MM3 CBC Comment DIFF FINAL Differential Comment Prothrombin Time 10.1 SEC Prothromb Time International Ratio 1.0 RATIO Activated Partial Thromboplast Time 23.7 SEC Blood Urea Nitrogen 11 MG/DL Creatinine 0.91 MG/DL Random Glucose 106 MG/DL Calcium Level 9.1 MG/DL Magnesium Level 2.3 MG/DL Sodium Level 141 MEQ/L Potassium Level 4.1 MEQ/L Chloride Level 108 MEQ/L Carbon Dioxide Level 24.0 MEQ/L Anion Gap 9 MEQ/L Estimat Glomerular Filtration Rate 85 ML/MIN Total Creatine Kinase 100 U/L Troponin I LESS THAN 0.02 NG/ML Lipase 318 U/L [facility] Medical Decision Making Medical Screen Exam Complete: Yes Emergency Medical Condition: Yes Medical Record Reviewed: Yes Differential Diagnosis ACS versus pleuritic pain versus chest wall pain versus anxiety versus substance abuse Narrative Course 57-year-old male presents emergency department for evaluation of left-sided chest pain with left arm tingling, associated nausea, shortness of breath, and lightheaded sensation. Patient appears well. His vital signs are stable. EKG is complete and reviewed by my attending with no acute ST elevation or depression noted. Patient is provided additional pain control. Laboratory Tests Test 03/26/18 15:15 White Blood Count 10.8 TH/MM3 Red Blood Count 6.19 MIL/MM3 Hemoglobin 17.7 GM/DL Hematocrit 52.9 % Mean Corpuscular Volume 85.5 FL Mean Corpuscular Hemoglobin 28.5 PG Mean Corpuscular Hemoglobin Concent 33.3 % Red Cell Distribution Width 13.8 % Platelet Count 220 TH/MM3 Mean Platelet Volume 10.0 FL Neutrophils (%) (Auto) 58.3 % Lymphocytes (%) (Auto) 24.0 % Monocytes (%) (Auto) 12.5 % Eosinophils (%) (Auto) 4.4 % Basophils (%) (Auto) 0.8 % Neutrophils # (Auto) 6.3 TH/MM3 Lymphocytes # (Auto) 2.6 TH/MM3 Monocytes # (Auto) 1.4 TH/MM3 Eosinophils # (Auto) 0.5 TH/MM3 Basophils # (Auto) 0.1 TH/MM3 CBC Comment DIFF FINAL Differential Comment Prothrombin Time 10.1 SEC Prothromb Time International Ratio 1.0 RATIO Activated Partial Thromboplast Time 23.7 SEC Blood Urea Nitrogen 11 MG/DL Creatinine 0.91 MG/DL Random Glucose 106 MG/DL Calcium Level 9.1 MG/DL Magnesium Level 2.3 MG/DL Sodium Level 141 MEQ/L Potassium Level 4.1 MEQ/L Chloride Level 108 MEQ/L Carbon Dioxide Level 24.0 MEQ/L Anion Gap 9 MEQ/L Estimat Glomerular Filtration Rate 85 ML/MIN Total Creatine Kinase 100 U/L Troponin I LESS THAN 0.02 NG/ML Lipase 318 U/L Last Impressions Chest X-Ray 03/26/18 1502 Signed Impressions: Service Date/Time: , March 26, 2018 15:28 - CONCLUSION: No acute disease. No significant change has occurred. Dallin Shah MD Findings are discussed with my attending physician. Patient will be admitted observation to the chest pain center for further evaluation. Plan is discussed with the patient who is in agreement with this plan of care. Diagnosis Primary Impression: Chest pain Qualified Codes: R07.9 - Chest pain, unspecified Admitting Information Admitting Physician Requests: Observation Scripts No Active Prescriptions or Reported Meds Condition: Stable Ekta Saul JOHN March 26, 2018 15:01
[2018-03-26] MEDS ORDERED: SODIUM CHLORIDE 0.9% FLUSH 10 ML FLUSH IVF PRN (15:15)
--- NOTE | 2018-03-26 15:43 | RADRPT ---
EXAM DATE/TIME: 03/26/2018 15:28 [place] COMPARISON: CHEST PA & LAT, February 15, 2018, 15:33. INDICATIONS : Chest pain. MEDICAL HISTORY : Myocardial infarction. Hepatitis C. SURGICAL HISTORY : Appendectomy. Tonsillectomy. ENCOUNTER: Initial ACUITY: 1 day PAIN SCORE: 8/10 LOCATION: Left chest FINDINGS: PA and lateral views of the chest demonstrate the lungs to be symmetrically aerated without evidence of mass, infiltrate or effusion. The cardiomediastinal contours are unremarkable. Osseous structure s are intact. CONCLUSION: No acute disease. No significant change has occurred. Dallin Shah MD on March 26, 2018 at 15:40 Board Certified Radiologist. This report was verified electronically.
[2018-03-26] MEDS ORDERED: MORPHINE SULFATE 4 MG/ML INJ IV PUSH ONE ×2 (16:15→17:15)
[2018-03-26] MEDS ORDERED: SODIUM CHLORID 0.9% 500 ML INJ 500 ML IV ONE (16:15)
[2018-03-26 16:18] LABS: AUTOMATED NEUTROPHIL # 6.3 TH/MM3 (1.8-7.7); BASOPHIL # 0.1 TH/MM3 (0-0.2); BASOPHIL % 0.8 % (0.0-2.0); EOSINOPHIL # 0.5 TH/MM3 (0-0.4); EOSINOPHIL % 4.4 % (0.0-4.0); HEMATOCRIT 52.9 % (39.0-51.0); HEMOGLOBIN 17.7 GM/DL (13.0-17.0); LYMPHOCYTE # 2.6 TH/MM3 (1.0-4.8); MEAN CELL VOLUME 85.5 FL (80.0-100.0); MEAN CORPUSCULAR HEMOGLOBIN 28.5 PG (27.0-34.0); MEAN CORPUSCULAR HGB CONC 33.3 % (32.0-36.0); MONO % 12.5 % (0.0-8.0); MONOCYTE # 1.4 TH/MM3 (0-0.9); NEUT % 58.3 % (16.0-70.0); PLATELET COUNT 220 TH/MM3 (150-450); RED BLOOD COUNT 6.19 MIL/MM3 (4.50-5.90); RED CELL DISTRIBUTION WIDTH 13.8 % (11.6-17.2); WHITE BLOOD COUNT 10.8 TH/MM3 (4.0-11.0)
[2018-03-26] MEDS: NITROGLYCERIN 0.4 MG SL 25 TABS/BTL SL SCH ×3 (16:22→16:36)
[2018-03-26 16:30] LABS: PROTHROMBIN TIME - PATIENT 10.1 SEC (9.8-11.6)
[2018-03-26 16:46] LABS: BLOOD UREA NITROGEN 11 MG/DL (7-18); CALCIUM 9.1 MG/DL (8.5-10.1); CHLORIDE 108 MEQ/L (98-107); CREATININE 0.91 MG/DL (0.60-1.30); GLOMERULAR FILTRATION RATE 85 ML/MIN (>89); GLUCOSE,RANDOM 106 MG/DL (74-106); MAGNESIUM 2.3 MG/DL (1.5-2.5); SODIUM (NA) 141 MEQ/L (136-145); TROPONIN I LESS THAN 0.02 NG/ML (0.02-0.05)
[2018-03-26] MEDS ORDERED: MORPHINE SULFATE 2 MG/ML SYRINGE IV PUSH ONE (17:00)
[2018-03-26] MEDS ORDERED: ONDANSETRON ODT 4 MG TAB PO PRN (17:15)
[2018-03-26] MEDS ORDERED: MORPHINE SULFATE 4 MG/ML INJ IV PUSH PRN (17:15)
[2018-03-26] MEDS ORDERED: NITROGLYCERIN 0.4 MG SL 25 TABS/BTL SL PRN (17:15)
[2018-03-26] MEDS ORDERED: SODIUM CHLORIDE 0.9% FLUSH 10 ML FLUSH IV FLUSH PRN (17:15)
[2018-03-26] MEDS ORDERED: ACETAMINOPHEN 500 MG CPLT PO PRN (17:15)
[2018-03-26] MEDS ORDERED: ACETAMINOPHEN/HYDROcodone 325 MG/7.5 MG TAB PO PRN (17:15)
[2018-03-26] MEDS ORDERED: KETOROLAC TROMETHAMINE 30 MG/ML (IVP) VIAL IV PUSH ONE (17:15)
[2018-03-26 19:40] LABS: TROPONIN I LESS THAN 0.02 NG/ML (0.02-0.05)
[2018-03-26] MEDS: SODIUM CHLORIDE 0.9% FLUSH 10 ML FLUSH IV FLUSH SCH (19:41)
[2018-03-27] VITALS: PULSE 66
[2018-03-27 00:17] LABS: TROPONIN I LESS THAN 0.02 NG/ML (0.02-0.05)
[2018-03-27 03:01] VITALS: BP 115/61; PULSE 60; RESP 17; TEMP 98.5; O2SAT 96
[2018-03-27 07:00] VITALS: PULSE 60
[2018-03-27 07:53] VITALS: BP 167/91; PULSE 57; RESP 18; TEMP 97.9; O2SAT 96
[2018-03-27 08:06] VITALS: O2SAT 96
--- NOTE | 2018-03-27 08:14 | HHI.HP ---
HPI Primary Care Physician Chong Singer DO Chief Complaint Chest pain History of Present Illness 57 year old male with reported history of UT-1998 presents to ER for further evaluation of non-exertional left arm and chest pain. Onset of left arm and shoulder pain 1100. Characterized as severe pain, waxed and waned intensity. Accompanied symptoms included left hand numb/tingling. Approximately 2 pm pain radiated to left anterior chest. Chest pain characterized as pressure. Associated symptoms included nausea and dyspnea. No vomiting or diaphorases. Duration constant. Current chest pain is now localized, point tenderness. Left arm discomfort "mild, feels like residual pain." Denies similar pain in the pain. No known precipitating or relieving factors. Friends encouraged him to come to ER for further evaluation. Endorses he has been moving over the last 2 days carrying heavy boxes and furniture, but does not believe he injured himself in any way. Review of Systems General: No fatigue, weakness, fever, chills, or change in appetite. Recent cold like symptoms 2 weeks ago, reporting symptoms much improved. HEENT: No MCM[place], no vision changes, no nasal congestion or drainage, no dysphasia CV: As stated above. No palpitations or dizziness. RESP: Nonproductive cough with intermittent wheezing improving over past 2 weeks. No SOB or hemoptysis. GI: No nausea, vomiting, bowel changes, diarrhea, constipation, pain, distention , melena, or blood in the stool. : No dysuria, urgency, frequency EXT: No lower leg edema, no paraesthesias MS: Continues to have left arm pain reporting improvement. No known injury, although reports recently move last 2 days carrying heavy boxes and furniture. No change in ROM. NEURO: No dizziness, difficulty with balance, LOC, motor/sensory deficits PSYCH: No anxiety or depression. No suicidal ideation. 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 SKIN: No rashes, no concerning lesions Past Family Social History Allergies: Coded Allergies: No Known Allergies (Verified Allergy, Unknown, 03/26/18) Past Medical History Cardiomyopathy, [place] (1998), pericarditis, substance mood disorder, remote cocaine use, suicide attempts Past Surgical History Appendectomy, tonsillectomy Reported Medications Reported Meds & Active Scripts Active No Active Prescriptions or Reported Medications Active Ordered Medications Current Medications Medications (Trade) Dose Ordered Sig/Reji Route Start Time Stop Time Status Last Admin (NS Flush) 2 ml UNSCH PRN IVF 03/26/18 15:15 (NS Flush) 2 ml UNSCH PRN IV FLUSH 03/26/18 17:15 (NS Flush) 2 ml BID IV FLUSH 03/26/18 21:00 03/26/18 19:41 (Tylenol) 500 mg Q4H PRN PO 03/26/18 17:15 ([place] 7.5-325 Mg) 1 tab Q4H PRN PO 03/26/18 17:15 03/26/18 19:41 (Morphine Inj) 2 mg Q4H PRN IV PUSH 03/26/18 17:15 (Nitrostat Sl) 0.4 mg Q5M PRN SL 03/26/18 17:15 (Zofran Odt) 4 mg Q6H PRN PO 03/26/18 17:15 03/27/18 00:08 (Aspirin) 325 mg DAILY PO 03/27/18 09:00 Family History Mother open heart surgery age 55. Social History No known hyperlipidemia, diabetes, hypertension. Reports having a [place] 1998 "without damage." Lifelong nonsmoker. Rare alcohol use. Endorses past cocaine use. Sedentary lifestyle, has a "desk job." Past cardiac testing No recent cardiac testing. Physical Exam Vital Signs Vital Signs Date Time Temp Pulse Resp B/P (MAP) Pulse Ox O2 Delivery O2 Flow Rate FiO2 03/27/18 08:06 96 21 03/27/18 07:53 97.9 57 18 167/91 (116) 96 03/27/18 03:01 98.5 60 17 115/61 (79) 96 03/27/18 00:00 66 03/26/18 23:04 98.4 68 16 143/83 (103) 98 03/26/18 21:58 97 Nasal Cannula 2.00 03/26/18 20:00 66 03/26/18 19:36 98.2 67 17 136/79 (98) 97 03/26/18 17:31 18 03/26/18 17:29 67 118/69 (85) 98 Nasal Cannula 2.00 03/26/18 17:13 61 18 122/74 (90) 98 Nasal Cannula 2.00 118/69 (85) 03/26/18 16:35 69 18 134/65 (88) 95 Nasal Cannula 2.00 03/26/18 15:16 71 22 97 Nasal Cannula 2.00 03/26/18 15:14 (85) 03/26/18 15:12 98.1 72 18 150/81 (104) 97 Nasal Cannula 2.00 125/66 (85) 03/26/18 15:11 Room Air 03/26/18 15:11 93 Room Air Physical Exam GENERAL: Alert WN, WD, NAD, pleasant, moderately obese male HEAD: NC, AT EYES: Sclera clear, conjunctiva without injection, pupils equal and round ENT: Mucous membranes pink and moist NECK: Supple, no masses, trachea midline CV: RRR, without murmur, rub, gallop, no JVD, S1-S2 no S3-S4. Left anterior test point tenderness with palpation. RESP: Clear lungs throughout bilateral, expiratory wheeze upper lobes, no rhonchi. Symmetrical chest rise, nonlabored, able to speak in full sentences ABD: Soft, NT, ND, no masses, positive bowel tones, obese EXT: Pulses +2x4, no dependent edema MS: Normal tone x4 extremities, no obvious deformities, full range of motion NEURO: CN II through CN XII grossly intact, motor strength 5/5 PSYCH: A+O -3, pleasant affect, appropriate speech, mood, insight and judgment SKIN: Normal turgor, normal texture, no lesions, no rashes, brisk cap refill, even hair distribution Laboratory Laboratory Tests Test 03/26/18 15:15 03/26/18 18:10 03/26/18 21:30 White Blood Count 10.8 Red Blood Count 6.19 Hemoglobin 17.7 Hematocrit 52.9 Mean Corpuscular Volume 85.5 Mean Corpuscular Hemoglobin 28.5 Mean Corpuscular Hemoglobin Concent 33.3 Red Cell Distribution Width 13.8 Platelet Count 220 Mean Platelet Volume 10.0 Neutrophils (%) (Auto) 58.3 Lymphocytes (%) (Auto) 24.0 Monocytes (%) (Auto) 12.5 Eosinophils (%) (Auto) 4.4 Basophils (%) (Auto) 0.8 Neutrophils # (Auto) 6.3 Lymphocytes # (Auto) 2.6 Monocytes # (Auto) 1.4 Eosinophils # (Auto) 0.5 Basophils # (Auto) 0.1 CBC Comment DIFF FINAL Differential Comment Prothrombin Time 10.1 Prothromb Time International Ratio 1.0 Activated Partial Thromboplast Time 23.7 Blood Urea Nitrogen 11 Creatinine 0.91 Random Glucose 106 Calcium Level 9.1 Magnesium Level 2.3 Sodium Level 141 Potassium Level 4.1 Chloride Level 108 Carbon Dioxide Level 24.0 Anion Gap 9 Estimat Glomerular Filtration Rate 85 Total Creatine Kinase 100 85 53 Troponin I LESS THAN 0.02 LESS THAN 0.02 LESS THAN 0.02 Lipase 318 Result Diagram: 03/26/18 1515 03/26/18 1515 Imaging Last 48 hours Impressions Chest X-Ray 03/26/18 1502 Signed Impressions: Service Date/Time: , March 26, 2018 15:28 - CONCLUSION: No acute disease. No significant change has occurred. Dallin Shah MD Course EKG NSR, normal axis, no st t segment changes Caprini VTE Risk Assessment Caprini VTE Risk Assessment: No/Low Risk (score <= 1) Caprini Risk Assessment Model Point Value = 1 Point Value = 2 Point Value = 3 Point Value = 5 Age 41-60 Minor surgery BMI > 25 kg/m2 Swollen legs Varicose veins or History of unexplained or recurrent spontaneous Oral contraceptives or hormone replacement Sepsis (< 1 month) Serious lung disease, including pneumonia (< 1 month) Abnormal pulmonary function Acute myocardial infarction Congestive heart failure (< 1 month) History of inflammatory bowel disease Medical patient at bed rest Age 61-74 Arthroscopic surgery Major open surgery (> 45 min) Laparoscopic surgery (> 45 min) Malignancy Confined to bed (> 72 hours) Immobilizing plaster cast Central venous access Age >= 75 History of VTE Family history of VTE Factor V Leiden Prothrombin [id number] Lupus anticoagulant Anticardiolipin antibodies Elevated serum homocysteine Heparin-induced thrombocytopenia Other congenital or acquired thrombophilia Stroke (< 1 month) Elective arthroplasty Hip, pelvis, or leg fracture Acute spinal cord injury (< 1 month) Prophylaxis Regimen Total Risk Factor Score Risk Level Prophylaxis Regimen 0-1 Low Early ambulation 2 Moderate Order ONE of the following: *Sequential Compression Device (SCD) *Heparin 5000 units SQ BID 3-4 Higher Order ONE of the following medications: *Heparin 5000 units SQ TID *Enoxaparin/Lovenox 40 mg SQ daily (WT < 150 kg, CrCl > 30 mL/min) *Enoxaparin/Lovenox 30 mg SQ daily (WT < 150 kg, CrCl > 10-29 mL/min) *Enoxaparin/Lovenox 30 mg SQ BID (WT < 150 kg, CrCl > 30 mL/min) AND/OR *Sequential Compression Device (SCD) 5 or more Highest Order ONE of the following medications: *Heparin 5000 units SQ TID (Preferred with Epidurals) *Enoxaparin/Lovenox 40 mg SQ daily (WT < 150 kg, CrCl > 30 mL/min) *Enoxaparin/Lovenox 30 mg SQ daily (WT < 150 kg, CrCl > 10-29 mL/min) *Enoxaparin/Lovenox 30 mg SQ BID (WT < 150 kg, CrCl > 30 mL/min) AND *Sequential Compression Device (SCD) Assessment and Plan Assessment and Plan #1 Atypical chest pain-admitted to chest pain center. Ruled out with 3 sets of EKGs, cardiac enzymes, and monitored on telemetry overnight. Seen and evaluated by Dr. Barajas. Proceed with exercise treadmill cardiac testing this morning. If unremarkable, plans to discharge home with follow up with primary care provider. Patient agreeable to plan of care and verbalized understanding. Discomfort most likely musculoskeletal in nature and if cardiac testing non- ischemic will encouraged use of short term NSAIDs use. #2 Situational stress-encouraged him to speak with his PCP during hospital follow appointment regarding his concerns over increased situational stress. Encouraged increasing daily activity, following a healthy diet, and getting adequate sleep of at least 7-8 hours night. Patient requested anxiety tablets. Referred him to PCP to determine if an anti-anxiety prescription would be appropriate. Discussed long acting medications may be recommended verses a PRN benzodiazepine. Verbalized understanding and states he will schedule an appointment for early next week. Marjan Shepherd March 27, 2018 08:14
[2018-03-27] MEDS: SODIUM CHLORIDE 0.9% FLUSH 10 ML FLUSH IV FLUSH SCH (08:33)
[2018-03-27] MEDS ORDERED: ASPIRIN 325 MG TAB PO SCH (09:00)
--- NOTE | 2018-03-27 10:19 | HHI.DCPOC ---
Discharge Care Plan Diagnosis: (1) Chest wall pain (2) Situational stress Goals to Promote Your Health * To prevent worsening of your condition and complications * To maintain your health at the optimal level Directions to Meet Your Goals Take your medications as prescribed Follow your dietary instruction Follow activity as directed Keep your appointments as scheduled Take your immunizations and boosters as scheduled If your symptoms worsen call your PCP, if no PCP go to Urgent Care Center or Emergency Room Smoking is Dangerous to Your Health. Avoid second hand smoke Call the 24-hour hour crisis hotline for domestic abuse at Marjan Shepherd March 27, 2018 10:19
--- NOTE | 2018-03-27 14:29 | TR ---
Date Performed: 03/27/2018 Time Performed: 08:49:25 DOCTOR: Maris Barajas DRUG LIST: CLINICAL HISTORY: REASON FOR TEST: REASON FOR ENDING: OBSERVATION: CONCLUSION: Robby protocol completed. Stopped sec to exceeding target heart rate and leg fatigue . Maximum AE=923 Target HR Achieved=87.0% Maximum [place]=414/82 Total Exercise Time=8:27. No reprod chest discomfort. Rare PVC. No st t segment changes. Sinus arrhythmia. Normal bp response. Good exercise tolerance. Recovery quick and unremarkable. COMMENTS: No ischemia
--- NOTE | 2018-03-27 14:37 | EKG ---
Date Performed: 03/26/2018 Time Performed: 21:17:33 PTAGE: 57 years EKG: Sinus rhythm NORMAL ECG Since PREVIOUS TRACING , no significant change noted PREVIOUS TRACIN03/26/2018 18.22 DOCTOR: Maris Barajas Interpretating Date/Time 03/27/2018 14:34:07
--- NOTE | 2018-03-27 14:38 | EKG ---
Date Performed: 03/26/2018 Time Performed: 18:22:41 PTAGE: 57 years EKG: SINUS BRADYCARDIA BORDERLINE ECG Since PREVIOUS TRACING , no significant change noted DOCTOR: Maris Barajas Interpretating Date/Time 03/27/2018 14:34:50
--- NOTE | 2018-03-27 14:39 | EKG ---
Date Performed: 03/26/2018 Time Performed: 15:06:26 PTAGE: 57 years EKG: Sinus rhythm NORMAL ECG Since PREVIOUS TRACING , no significant change noted PREVIOUS TRACIN02/15/2018 16.07 DOCTOR: Maris Barajas Interpretating Date/Time 03/27/2018 14:35:03
== END 2018-03-27 12:25 | disposition home or self-care (01) ==
LOC: NEPE 14:54 → NEDA 17:11 → NEPFCDU 17:54
PROVIDERS: ADMIT Internal Medicine Interventional Cardiology; ATTEND Internal Medicine Interventional Cardiology
DX: R07.89 Other chest pain (principal); F43.8 Other reactions to severe stress; I25.10 Atherosclerotic heart disease of native coronary artery without angina pectoris; R42 Dizziness and giddiness; R20.2 Paresthesia of skin; R11.0 Nausea; R06.02 Shortness of breath; I25.2 Old myocardial infarction; M79.622 Pain in left upper arm; M25.512 Pain in left shoulder; R06.00 Dyspnea, unspecified; I42.9 Cardiomyopathy, unspecified; F39 Unspecified mood [affective] disorder; F14.90 Cocaine use, unspecified, uncomplicated
CPT/HCPCS: 71046; 80048; 82550; 83690; 83735; 84484; 85025; 85610; 85730; 93005; 93017; 96361; 96374; 96375; 96376; 99285; G0378; J1885; J2270; J7040